=== PATIENT | male | born 1960 | race Caucasian/White ===

== ENCOUNTER 2019-06-11 09:41 | Day surgery (SDC) | payer BC, SELFPAY ==
[2019-06-11 10:03] VITALS: BMI 30.6
[2019-06-11 10:13] VITALS: BP 134/78; PULSE 56; RESP 16; TEMP 35.7; O2SAT 98
[2019-06-11] MEDS: SODIUM CHLORIDE 0.9% 1,000 ML 200 ML IV (10:25)
--- NOTE | 2019-06-11 11:02 | P.HP_ITS ---
History of Present Illness History of Present Illness Date Patient Seen: 06/11/19 Time Patient Seen: 11:02 Chief complaint: [id number] SCREENING COLONOSCOPY Narrative: This is a 58-year-old man with personal history of colon polyps found on prior screening colonoscopy, and family history of advanced colon polyps in his father and colon cancer in his grandmother. The patient started having screening colonoscopy that age 44, and this is his 3rd colonoscopy. He says t hat he has a history of rectal bleeding, but he has not had any since his last colonoscopy. He denies any melena, unexplained weight loss, or abdominal pain. ROS Thirteen system review is otherwise negative other than as mentioned below and in HPI. PE: GENERAL: Well groomed and cooperative. Appears stated age. Answers questions promptly and appropriately. Vital signs noted. HENT: Normocephalic, atraumatic. Hearing intact. Oral mucosa is pink and moist. EYES: Conjunctiva pink, sclera white, no periorbital swelling. CARDIOVASCULAR: Regular rate. No pedal edema. RESPIRATORY: Non-tachypneic, breathing comfortably on room air. GASTROINTESTINAL: Abdomen soft and non-distended GENITALURINARY: No flank tenderness. MUSCULOSKELETAL: Equal tone and mass bilaterally. SKIN: Warm, dry, soft, appropriate color for ethnicity. No other lesions, rashes, or wounds. NEURO: Alert and Oriented X 3. No gross sensory deficits, or cognitive issues. PSYCH: Appropriate affect and mood. Patient History Medical History Dairy allergy (Acute) Hyperlipidemia (Acute) Hypertension (Acute) Obstructive sleep apnea syndrome (Chronic) Prediabetes (Acute) Seasonal allergies (Acute) Family & Social History Social History: household members spouse Tobacco & Substance use: Smoking Status Unknown if ever smoked Meds Home Medications and Allergies Home Medications Medication Instructions Recorded Confirmed Type Respironics Dreamstation CPAP #1 ea 01/11/19 01/11/19 History alpha lipoic acid 300 mg PO DAILY 06/11/19 06/11/19 History atorvastatin 40 mg PO DAILY 06/11/19 06/11/19 History brimonidine-timolol [Combigan] 1 drp EYE-BOTH DAILY 06/11/19 06/11/19 History cholecalciferol (vitamin D3) 1,000 unit PO DAILY 06/11/19 06/11/19 History [Vitamin D3] irbesartan 150 mg PO DAILY 06/11/19 06/11/19 History magnesium 350 mg PO DAILY 06/11/19 06/11/19 History omega 6-hez-zgz-fish oil [Fish Oil] 2 cap PO BID 06/11/19 06/11/19 History testosterone cypionate 50 mg IM Q3W 06/11/19 06/11/19 History [Depo-Testosterone] Allergies Allergy/AdvReac Type Severity Reaction Status Date / Time No Known Drug Allergies Allergy Verified 06/11/19 09:56 Exam Vital Signs (past 8 hours): - 06/11/19 10:13 Temperature 96.2 F L Pulse Rate 56 L Respiratory Rate 16 Blood Pressure 134/78 Pulse Oximetry 98 Oxygen Delivery Method Room Air Assessment & Plan Assessment and plan (1) Personal history of colonic polyps: Current visit: Yes Status: Acute (2) Obesity: Current visit: No Status: Chronic (3) Family history of colon cancer: Current visit: Yes Status: Acute Assessment & Plan narrative: This is a 58-year-old man with personal history of colon polyps and family history of colon cancer here for surveillance colonoscopy. Risks and benefits of colonoscopy including bleeding, perforation, risk of anesthesia were discussed. The patient desires to proceed with his colonoscopy procedure. Time Spent With Patient Time with patient: 15-24 minutes Quality VTE Deep Vein Thrombosis/Pulmonary Embolism Present on Admission: No
--- NOTE | 2019-06-11 11:33 | PM.OP.ENDO ---
Operative Date/Time/Diagnoses Date of procedure: 06/11/19 Time of procedure: 11:33 Pre-op diagnosis: Personal history of colon polyps, family history of colon cancer Post-op diagnosis: same Procedure & Clinicians Study performed: Colonoscopy Same procedure as scheduled: Yes Indications: Personal history of colon polyps, family history of colon cancer Surgeon: Coni Samson Procedure Notes SCOAP/Timeout: Performed Procedure in detail: The patient was brought to the room and placed in left lateral decubitus position with all bony prominences padded. A time-out was performed and then the patient was given procedural sedation starting with [4] mg of Versed and [100] mcg of fentanyl. Total medication for the procedure was 5 mg of Versed and 150 micro g of fentanyl. Vitals were monitored throughout the procedure and remained stable. Once adequately sedated the procedure was begun. A rectal exam was performed revealing [no abnormalities]. The colonoscope was then introduced to the rectum and advanced to the cecum in the usual fashion. []The cecum was identified by the appendiceal orifice, the mucosal tri-fold, and the ileocecal valve. The scope was then retracted while rotating side to side and examining each mucosal fold. [Moderate diverticulosis is seen in the sigmoid colon.] At the conclusion of the procedure retroflexion was performed and [small grade 1-2 internal hemorrhoids without stigmata of bleeding were seen]. The scope was then withdrawn from the rectum the procedure was concluded. The patient tolerated the procedure well and was transferred to the PACU in stable condition. Scope withdrawal time: 9 Sedation minutes: 26 Findings: diverticulosis Specimen(s): none sent Complications: none Impression: Mild diverticulosis, no polyps Post-procedure Recommendations: Colonscopy in 5 years (Due to family history colon cancer and advanced polyps, and personal history of polyps) Follow up: as needed Disposition: PACU
[2019-06-11] MEDS: MIDAZOLAM 5 MG/5 ML VIAL IV (11:35)
[2019-06-11] MEDS: fentaNYL 250 MCG/5 ML INJ IV (11:35)
[2019-06-11 11:40] VITALS: BP 111/71; PULSE 63; RESP 15; TEMP 36.4; O2SAT 96
== END 2019-06-11 12:18 | disposition home or self-care (01) ==
PROVIDERS: PCP Family Medicine Geriatric Medicine; Visit Provider Surgery
PROC: 0DJD8ZZ Inspection of Lower Intestinal Tract, Via Natural or Artificial Opening Endoscopic (ICD-10-PCS; CPT 45378; principal; 2019-06-11 11:00)
DX: Z12.11 Encounter for screening for malignant neoplasm of colon (principal); Z86.010 Personal history of colon polyps; Z80.0 Family history of malignant neoplasm of digestive organs; G47.33 Obstructive sleep apnea (adult) (pediatric); R73.03 Prediabetes; E78.5 Hyperlipidemia, unspecified; I10 Essential (primary) hypertension; K57.30 Diverticulosis of large intestine without perforation or abscess without bleeding; K64.0 First degree hemorrhoids
CPT/HCPCS: 45378; 99152; 99153; J2250; J3010

== ENCOUNTER → 2022-02-26 09:54 | Outpatient (CLI) | payer OTHER, SELFPAY ==
--- NOTE | 2022-02-26 | DI.US.S_ITS ---
PROCEDURE: US SCROTUM INDICATIONS: TESTICULAR MASS TECHNIQUE: Real-time scanning was performed of the scrotum and testicles, with image documentation. Color and pulse Doppler interrogation was performed of both testicles. COMPARISON: None. FINDINGS: Right: Testicle is normal in size at 4.1 x 2.1 x 1.8 cm, and homogenous in echotexture. Epididymis is normal in overall size and morphology. No hydrocele or varicoceles. Overlying scrotal skin is normal in thickness. Left: Testicle is normal in size at 3.5 x 2.3 x 1.8 cm, and homogeneous in echotexture. Left epididymis is mildly enlarged and heterogeneous in echogenicity/echotexture with numerous small cystic spaces particularly in the epididymal tail which is mildly dilated relative to the remainder of the epididymis. No hydrocele or varicoceles. Overlying scrotal skin is normal in thickness. Doppler: Color and pulse Doppler demonstrate normal and symmetric arterial flow in both testicles. IMPRESSION: Mildly enlarged left epididymis with numerous cysts in the epididymal tail region. This could be related to epididymitis or potentially represent changes due to the patient's history of orchipexy. Dictated by: Jose Manuel Lee M.D. on 02/27/2022 at 9:52 Approved by: Jose Manuel Lee M.D. on 02/27/2022 at 9:55
--- NOTE | 2022-02-26 | DI.US.S_ITS ---
PROCEDURE: US ABDOMEN LIMITED INDICATIONS: ABNORMAL LIVER ENZYMES TECHNIQUE: Real-time scanning was performed of the abdominal and retroperitoneal organs, with image documentation. COMPARISON: None. FINDINGS: Liver: Liver is normal in size. The liver demonstrate diffuse increased echogenicity with focal areas of decreased echogenicity. Gallbladder: No stones are identified. Wall thickness is normal measuring 1.4 mm. Biliary ducts: Intrahepatic bile ducts are non-dilated. Extrahepatic bile duct caliber measures 2.8 mm. Normal is 6-7 mm or less in diameter, or 10 mm or less post-cholecystectomy. Pancreas: Not well seen. IMPRESSION: Hepatic steatosis with focal areas of decreased echogenicity. This could represent focal fat sparing. No priors are available for comparison. Short interval imaging follow-up is recommended or CT abdomen pelvis for further evaluation of these regions. Dictated by: Danay Lawson M.D. on 02/28/2022 at 8:11 Approved by: Danay Lawson M.D. on 02/28/2022 at 8:14
== END ==
PROVIDERS: PCP Naturopath; Referring Provider Naturopath; Visit Provider Naturopath
DX: N52.9 Male erectile dysfunction, unspecified (principal); N48.6 Induration penis plastica; R68.82 Decreased libido; R79.89 Other specified abnormal findings of blood chemistry; K76.0 Fatty (change of) liver, not elsewhere classified; E29.1 Testicular hypofunction; N50.3 Cyst of epididymis; E78.2 Mixed hyperlipidemia; E11.9 Type 2 diabetes mellitus without complications; E66.3 Overweight
CPT/HCPCS: 76705; 76870

== ENCOUNTER → 2023-04-14 10:07 | Outpatient (CLI) | payer OTHER, SELFPAY ==
--- NOTE | 2023-04-14 | DI.ECHO.S_ITS ---
[facility] +---------+ : : [address] : : : : [id number] : : : : Phone: [phone]+ Echocardiogram Report + + :Name: DINORAH ROBERT Study Date: 04/14/2023 Height: 72 in : :[facility] ReadingLocation: Weight: 240 lb : : Gender: Male BSA: 2.3 m2 : :: 1960 Age: 62 yrs BP: 138/91 mmHg: :Reason For Study: Abnormal Echo : :Ordering Physician: LUNA, : :ERIC Performed By: Ana Maria Ramos : :Referring: ERIC CARRASCO : + + Interpretation Summary The ejection fraction is estimated to be 55-60%. Diastolic function could not be accurately assessed due to unobtainable data. The right ventricle is normal in size and function. The aortic valve is trileaflet. There is thickening and calcification of the left coronary cusp with reduced leaflet excursion. Pulmonary artery pressures cannot be estimated because of the lack of a measurable TR jet velocity but the IVC suggests a CVP of around 3 mmHg. Procedure: A two-dimensional transthoracic echocardiogram with color flow and Doppler was performed. The study quality was technically adequate. The patient had an echocardiogram, but there is no comparison study available. The patient was in normal sinus rhythm during the exam. Left Ventricle: The left ventricle is normal in size. The ejection fraction is estimated to be 55-60%. Diastolic function could not be accurately assessed due to unobtainable data. Right Ventricle: The right ventricle is normal in size and function. Atria: The left atrial size is normal. Right atrial size is normal. There is no Doppler evidence for an interatrial shunt. Mitral Valve: The mitral valve leaflets appear borderline thickened, but open well. There is mild to moderate mitral annular calcification. There is no mitral valve stenosis. There is trace mitral regurgitation. Aortic Valve: The aortic valve is trileaflet. There is thickening and calcification of the left coronary cusp with reduced leaflet excursion. There is no aortic valve stenosis. No aortic regurgitation is present. Tricuspid Valve: The tricuspid valve is normal. There is no tricuspid stenosis. There is trace tricuspid regurgitation. Pulmonary artery pressures cannot be estimated because of the lack of a measurable TR jet velocity but the IVC suggests a CVP of around 3 mmHg. Pulmonic Valve: The pulmonic valve is not well visualized. There is no pulmonic valvular stenosis. There is no pulmonic valvular regurgitation. Great Vessels: The aortic root is normal size. The ascending aorta is normal in size. The pulmonary artery is normal size. The IVC is of normal diameter and collapses greater than 50% with a sniff. This suggests a low right atrial pressure of 3 mm Hg. Pericardium/ Pleura There is no pericardial effusion. There is no pleural effusion. MMode/2D Measurements & Calculations LVIDd: 4.1 cm LVOT diam: 2.0 cm LVIDs: 3.0 cm Ao root diam: 3.0 cm FS: 26.8 % asc Aorta Diam: 3.4 cm IVSd: 1.3 cm LVPWd: 1.3 cm LV orozco. diameter/BSA (cm/m^2): 1.8 LV sys. diameter/BSA (cm/m^2): 1.3 LA A2 area: 22.4 cm2 RA long axis: 5.4 cm LA A4 area: 16.6 cm2 RA area: 17.3 cm2 LA length (vol): 5.7 cm RA vol: 46.6 ml LA vol: 55.2 ml RA : 20.3 ml/m2 LA vol index: 24.0 ml/m2 RVD1 (basal): 4.5 cm LVLs ap4: 7.3 cm LVLd ap2: 8.1 cm TAPSE_phl: 3.2 cm LVLs ap2: 6.9 cm Doppler Measurements & Calculations Ao V2 max: 170.3 cm/sec LVOT Max Hakan: 120.5 cm/sec Ao V2 mean: 116.0 cm/sec LV V1 max P.8 mmHg Ao max P.0 mmHg LV V1 VTI: 24.7 cm Ao mean P.0 mmHg CHUCK(I,D): 2.3 cm2 Ao V2 VTI: 33.9 cm CHUCK(V,D): 2.2 cm2 sev ratio: 0.73 CHUCK indexed to BSA (cm^2/m^2): 0.99 MV E max hakan: 97.7 cm/sec PA V2 max: 101.0 cm/sec MV A max hakan: 108.0 cm/sec PA V2 mean: 70.0 cm/sec MV E/A: 0.90 PA mean P.0 mmHg Med Peak E' Hakan: 5.3 cm/sec PA pr(Accel): 42.1 mmHg E/E' med: 18.3 Lat Peak E' Hakan: 8.6 cm/sec E/E' lat: 11.4 E/e' average: 14.8 MV dec time: 0.20 sec SV(LVOT): 77.6 ml AV VR_phl: 0.71 CHUCK(VTI)/BSA_phl: 1.0 Reading Physician:05:34 PM
== END ==
PROVIDERS: PCP Naturopath; Referring Provider Nurse Practitioner Acute Care; Visit Provider Nurse Practitioner Acute Care
DX: I34.81 Nonrheumatic mitral (valve) annulus calcification (principal); R93.1 Abnormal findings on diagnostic imaging of heart and coronary circulation
CPT/HCPCS: 93306

== ENCOUNTER → 2023-08-27 | Outpatient (CLI) | payer OTHER, SELFPAY ==
--- NOTE | 2023-08-27 | DI.NM.S_ITS ---
PROCEDURE: NM DANA PERF SPECT REST & STR Rest and exercise myocardial perfusion SPECT with gated imaging and ejection fraction RADIOPHARMACEUTICAL: 12.1 mCi Tc-99m sestamibi IV at rest and 25.8 mCi Tc-99m sestamibi IV at peak exercise. A one day-protocol was performed. INDICATIONS: [place] Coronary calcuium score greater than 400 TECHNIQUE: Radiopharmaceutical was injected at peak stress test, and also at rest. SPECT images were obtained. SPECT myocardial perfusion images were displayed in short axis, horizontal long axis, and vertical long axis views. Gated images were reviewed using [employer] NLG software. COMPARISON: None. CARDIAC STRESS: A standard Dino treadmill exercise tolerance test was performed by the patient under the supervision of an attending staff. The patient exercised for 6 minutes and 1 seconds; functional aerobic impairment (EVA) is +25%. Hemodynamic data: There is normal blood pressure and heart rate response to exercise stress. Patient achieved 90% of maximum predicted heart rate at peak exercise. Symptoms: Patient denied chest pain during exercise. EKG: No diagnostic EKG changes of ischemia; no ectopy. FINDINGS: Raw data: There is good myocardial labeling by radiotracer. No significant motion artifacts. Akzr-wb-vzwgn ratio is 0.27 (normal is less than 0.38 for sestamibi tracer, and less than 0.50 for thallium tracer). Left ventricle function: Gated images demonstrate normal left ventricle wall thickening. No segmental wall motion abnormality. No transient ischemic dilation; TID is 0.85 (normal less than 1.3). The left ventricle resting end-diastolic volume is 121 mL. Left ventricle stress ejection fraction is 70%; normal values are above 45%. Myocardial perfusion: There is a moderately intense fixed inferior wall defect that resolves with prone imaging, suggesting diaphragmatic attenuation artifact. No ischemia and no infarction present. IMPRESSION: Low risk, probably normal treadmill nuclear stress test 1) There is a moderately intense fixed inferior wall defect that resolves with prone imaging, suggesting diaphragmatic attenuation artifact. No ischemia and no infarction present. 2) Normal left ventricular size, wall motion, and systolic function (EF post stress 70%). 3) No ST changes during exercise or recovery. 4) No angina during the study. 5) Mildly reduced exercise tolerance (7.0METS, EVA +25%). 90% of maximum predicted heart rate reached. Appropriate BP response to exercise. 6) No prior nuclear stress test available for comparison. Dictated by: Harry Iqbal MD on 08/29/2023 at 14:59 Approved by: Harry Iqbal MD on 08/29/2023 at 15:03
== END ==
PROVIDERS: PCP Naturopath; Referring Provider Internal Medicine Cardiovascular Disease; Visit Provider Internal Medicine Cardiovascular Disease
DX: R93.1 Abnormal findings on diagnostic imaging of heart and coronary circulation (principal); I10 Essential (primary) hypertension; E78.5 Hyperlipidemia, unspecified
CPT/HCPCS: 78452; 93017; A9502

== ENCOUNTER 2025-04-19 11:55 | Day surgery (SDC) | payer MEDICARE, OTHER, SELFPAY ==
--- NOTE | 2025-04-19 06:49 | PM.HP.IH.1 ---
History of Present Illness History of Present Illness Date Patient Seen: 04/19/25 Chief complaint: Screening Colonoscopy Narrative: Presents for screening colonoscopy today. [facility] Medical History (Updated 04/19/25 @ 06:50 by Khai Cai MD) Prediabetes Hyperlipidemia Hypertension Seasonal allergies Dairy allergy Obstructive sleep apnea syndrome Social History household members: spouse Meds Home Medications and Allergies Home Medications ?Medication ?Instructions ?Recorded ?Confirmed ?Type Respironics Dreamstation CPAP #1 ea 01/11/19 01/11/19 History alpha lipoic acid 300 mg capsule 300 mg PO DAILY 06/11/19 06/11/19 History atorvastatin 40 mg tablet 40 mg PO DAILY 06/11/19 06/11/19 History brimonidine 0.2 %-timolol 0.5 % 1 drp EYE-BOTH DAILY 06/11/19 06/11/19 History eye drops (Combigan) cholecalciferol (vitamin D3) 25 1,000 unit PO DAILY 06/11/19 06/11/19 History mcg (1,000 unit) capsule (Vitamin D3) irbesartan 150 mg tablet 150 mg PO DAILY 06/11/19 06/11/19 History magnesium 250 mg tablet 350 mg PO DAILY 06/11/19 06/11/19 History omega 0-wct-ycv-fish oil 1,000 mg 2 cap PO BID 06/11/19 06/11/19 History (120 mg-180 mg) capsule (Fish Oil) testosterone cypionate 100 mg/mL 50 mg IM Q3W 06/11/19 06/11/19 History intramuscular oil (Depo-Testosterone) sodium,potassium,mag sulfates 17.5 See Rx Instructions PO .COMPLEX 03/11/25 Rx gram-3.13 gram-1.6 gram oral soln #354 mL (Suprep Bowel Prep Kit) Allergies Allergy/AdvReac Type Severity Reaction Status Date / Time No Known Drug Allergies Allergy Verified 06/11/19 09:56 Exam Narrative Exam Narrative: Const General: healthy appearing, comfortable and no acute distress Orientation: alert and oriented x3 HENMT Ears: hearing grossly normal bilaterally Eyes Visual Bansal: normal visual bansal by confrontation Conjunctivae: conjunctivae normal Sclera: sclerae normal EOM: EOM intact bilaterally Resp Effort & Inspection: normal respiratory effort and able to speak in complete sentences Cardio Rate: regular rate GI Palpation: soft (NT) Extrem General: no pedal edema and no calf tenderness Assessment & Plan Assessment and plan (1) Encounter for screening colonoscopy: Status: Acute (2) Family history of colon cancer: Status: Acute (3) Personal history of colonic polyps: Status: Acute Plan Plan colonoscopy, possible biopsy. The risks, benefits and options regarding the procedure were explained to the patient in detail. Risk discussion included but not limited to: bleeding, perforation, unable to reach cecum, missed lesion. The patient was encouraged to ask questions and they were answered to their satisfaction. The patient understands and is agreeable to proceed. Time-Based Coding :: [TOTAL MINUTES] spent with patient and on the chart (including review of chart, obtaining history, exam, reviewing outside data, placing orders, documenting exam and treatment plan, and counseling patient) on [DATE]. PROFEE Tank Operator Document charge(s): Yes Charge Codes Inpatient/observation care including admit and discharge same day:
[2025-04-19 12:17] VITALS: BP 154/86; PULSE 65; RESP 16; TEMP 36.5; O2SAT 99
[2025-04-19] MEDS: LACTATED RINGERS 1,000 ML 42 ML IV (12:29)
--- NOTE | 2025-04-19 12:59 | P.OP.COLON_ITS ---
Operative Date/Time/Diagnoses Date of procedure: 04/19/25 Time of procedure: 13:38 Pre-op diagnosis: Screening colonoscopy, h/o polyps Post-op diagnosis: same Procedure & Clinicians Study performed: Screening colonoscopy Same procedure(s) as scheduled: Yes Indications: H/O colon polyps, screening colonoscopy Surgeon: Khai Cai Anesthesia Type: MAC +/- Procedure Notes SCOAP/Timeout: Performed Procedure in detail: Colonoscopy Patient placed in left lateral recumbent position. Time out was performed. Procedural sedation was administered by anesthesia. Examination began with a thorough inspection of the perianal area. There was no evidence of fissures, fistulae, external hemorrhoids or cutaneous malignancy. The colonoscope was then placed into the rectum and the lumen was insufflated with carbon dioxide. The scope was carefully advanced forward. Ultimately the cecum was intubated and confirmed by identification of the ileocecal valve, the appendiceal orifice and the confluence of the taenia. The scope was then slowly withdrawn examining the colon thoroughly in all directions. In the rectum, retroflexion of the scope was performed for inspection of the distal rectum and anal canal. ?Significant colonoscopy findings: ?1. Quality of the preparation-good, [place] 2-3, improved with irrigation/sucti on ?2. Scattered sigmoid diverticulae 3. No polyps, strictures, ulcers or mass on today's exam 4. Dilated rectal veins with internal hemorrhoids, would be candidates for ban ding if symptomatic Scope withdrawal time: 11 minutes Findings: divertiulosis Specimen(s): none sent Estimated Blood Loss: 5 Complications: none Impression: Sigmoid diverticulosis Internal hemorrhoids Otherwise normal colonoscopy today, no polyps Plan to continue 5 year surveillance due to family history Post-procedure Recommendations: Colonoscopy in 5 years Plan for aftercare: PACU then home Follow up: as needed Disposition: PACU
[2025-04-19 13:35] VITALS: BP 106/65; PULSE 68; RESP 16; TEMP 36.2; O2SAT 98
[2025-04-19 13:39] VITALS: BP 110/69; PULSE 72; RESP 18; O2SAT 98
[2025-04-19 13:50] VITALS: BP 121/80; PULSE 68; RESP 19; TEMP 36.2; O2SAT 99
== END 2025-04-19 14:57 | disposition home or self-care (01) ==
PROVIDERS: PCP Student in an Organized Health Care Education/Training Program; Referring Provider Surgery; Visit Provider Surgery
PROC: 0DJD8ZZ Inspection of Lower Intestinal Tract, Via Natural or Artificial Opening Endoscopic (ICD-10-PCS; CPT 45378; principal; 2025-04-19 13:00)
DX: Z12.11 Encounter for screening for malignant neoplasm of colon (principal); Z86.0100 Personal history of colon polyps, unspecified; Z80.0 Family history of malignant neoplasm of digestive organs; K57.30 Diverticulosis of large intestine without perforation or abscess without bleeding; K64.8 Other hemorrhoids; R73.03 Prediabetes; G47.33 Obstructive sleep apnea (adult) (pediatric); E78.5 Hyperlipidemia, unspecified; I10 Essential (primary) hypertension
CPT/HCPCS: G0105; 82962; J2704; J7120